=== PATIENT | male | born 1985 | race Caucasian/White ===

== ENCOUNTER 2016-12-29 11:00 | Emergency (ER) | payer MEDICAID ==
[2016-12-29 11:13] VITALS: BP 145/86
== END 2016-12-29 12:14 | disposition home or self-care (01) ==
LOC: ED 11:00
DX: S01.511A Laceration without foreign body of lip, initial encounter (principal); X58.XXXA Exposure to other specified factors, initial encounter; Y93.61 Activity, american tackle football; Y99.8 Other external cause status; Y92.89 Other specified places as the place of occurrence of the external cause
CPT/HCPCS: J2001